=== PATIENT | male | born 1965 | race Caucasian/White ===

== ENCOUNTER 2020-07-21 11:59 | Outpatient (CLI) | payer OTHER ==
--- NOTE | 2020-07-21 14:18 | XRay Report ---
CERVICAL SPINE 3 VIEWS INDICATION: NECK PAIN. COMPARISON: None. IMPRESSION: Normal alignment. No significant discogenic DJD or facet arthropathy. No acute osseous or soft tissue abnormality. Signer Name: Rex Guzman Jr, MD Signed: 07/21/2020 2:14 PM Workstation Name: [id number]
== END 2020-07-21 12:00 | disposition home or self-care (01) ==
LOC: EDBD 11:59 → XRAY 11:59
PROVIDERS: ATTEND Internal Medicine
DX: M54.2 Cervicalgia (principal)
CPT/HCPCS: 72040